=== PATIENT | female | born 1995 | race Two or more races ===

== ENCOUNTER 2024-10-27 09:56 | Emergency (ER) | payer OTHER ==
[~2024-10-27] VITALS: Ht 152.4 cm; Wt 70.3 kg
[2024-10-27 10:57] LABS: HEMATOCRIT 40.9 % (36.0-45.00); HEMOGLOBIN 13.9 g/dL (12.0-15.00); MEAN CELL VOLUME 90.4 fL (80.00-100.00); MEAN CORPUSCULAR HEMOGLOBIN 30.7 pg (27.00-32.0); PLATELET COUNT 297 K/uL (150-450); RED BLOOD COUNT 4.52 M/uL (4.00-6.00)
== END 2024-10-27 14:19 | disposition home or self-care (01) ==
LOC: ER 09:57
PROVIDERS: Emergency Medicine
DX: O20.8 Other hemorrhage in early pregnancy (principal); Z3A.01 Less than 8 weeks gestation of pregnancy

== ENCOUNTER 2025-02-15 22:24 | Inpatient (IN) | payer OTHER ==
[~2025-02-15] VITALS: Ht 154.9 cm; Wt 76.7 kg
[2025-02-15 22:00] VITALS: BP 126/79
[2025-02-15] MEDS ORDERED: PRENATAL TABLE1 EAC4 PO (22:28)
[2025-02-15] MEDS ORDERED: RINGERS SOLUTION,LACTATED 1,000 ML IV SCH (22:45)
[2025-02-15 23:11] VITALS: BP 104/68; O2SAT 96
[2025-02-16] VITALS (10 sets, daily range): BP systolic 98–123; BP diastolic 62–81; O2SAT 98–100
[2025-02-16 06:29] LABS: BASO % 0.1 % (0.1-1.2); EOS # 0.01 (0.04-0.54); EOS % 0.1 % (0.7-7.0); LYMPH # 1.04 (1.18-3.74); LYMPH % 7.2 % (19.3-53.1); MEAN PLATELET VOLUME 10.20 fl (9.4-12.4); MONO # 0.54 (0.24-0.82); MONO % 3.7 % (4.7-12.5); NEUT # 12.80 (1.56-6.13); NEUT % 88.6 % (34.0-71.1); RED CELL DISTRIBUTION WIDTH 13.1 % (11.6-14.4)
[2025-02-16 06:43] LABS: INR < 0.93
[2025-02-16] MEDS ORDERED: RINGERS SOLUTION,LACTATED 1,000 ML IV SCH (07:15)
[2025-02-16] MEDS ORDERED: OXYTOCIN 500 ML IV SCH (08:45)
[2025-02-16 08:54] LABS: ALT/SGPT 54.0 U/L (12-78); AST/SGOT 22.0 U/L (15-37); BILIRUBIN TOTAL 0.42 mg/dL (0.3-1.2); BUN CREA RATIO 12.0 (7.0-25.0); CREATININE SERUM 0.49 mg/dL (0.55-1.02); GFR 148.29; GLOBULINA 3.1 G/DL (2.4-3.5); GLUCOSE FASTING 112.0 mg/dL (65-100); OSMOLALITY SERUM 280.0 MOSM/KG (275-295)
[2025-02-16 09:37] LABS: URINE APPEARANCE Cloudy; URINE BILIRRUBIN Small (NEGATIVE); URINE BLOOD Large; URINE COLOR Red; URINE GLUCOSE Negative (NEGATIVE); URINE LEUKOCYTE Large; URINE NITRATE Positive; URINE UROBILINOGEN 0.2 E.U./dl
[2025-02-16 09:40] LABS: URINE BACTERIA 6199.1 uL (0.0-1933); URINE EPITHELIAL CELLS 16.1 uL (0.0-38.8); URINE RBC 129.9 uL (0.0-20.8); URINE WBC 222.9 uL (0.0-23.2)
[2025-02-16 10:59] LABS: URINE CAST 0.19 uL (0.0-1.40); URINE KETONE 40 (NEGATIVE); URINE PROTEIN 300 (NEGATIVE)
[2025-02-16] MEDS ORDERED: CEFAZOLIN SODIUM 2,000 MG in DEXTROSE 5 % IN WATER 100 ML IV SCH (14:00)
[2025-02-17 00:23] LABS: BASO % 0.2 % (0.1-1.2); EOS # 0.04 (0.04-0.54); EOS % 0.3 % (0.7-7.0); LYMPH # 2.13 (1.18-3.74); LYMPH % 14.0 % (19.3-53.1); MEAN PLATELET VOLUME 10.50 fl (9.4-12.4); MONO # 0.87 (0.24-0.82); MONO % 5.7 % (4.7-12.5); NEUT # 12.07 (1.56-6.13); NEUT % 79.1 % (34.0-71.1); RED CELL DISTRIBUTION WIDTH 13.2 % (11.6-14.4)
[2025-02-17 02:35] LABS: RH POSITIVE
[2025-02-17 02:59] VITALS: BP 92/58; O2SAT 95
[2025-02-17 08:57] VITALS: BP 108/71; O2SAT 99
[2025-02-17 18:00] VITALS: BP 128/83; O2SAT 100
[2025-02-18 01:03] VITALS: BP 100/62; O2SAT 98
[2025-02-18 08:37] VITALS: BP 124/76; O2SAT 100
[2025-02-18 13:52] LABS: BASO % 0.5 % (0.1-1.2); EOS # 0.32 (0.04-0.54); EOS % 2.8 % (0.7-7.0); LYMPH # 1.91 (1.18-3.74); LYMPH % 16.7 % (19.3-53.1); MEAN PLATELET VOLUME 10.20 fl (9.4-12.4); MONO # 0.86 (0.24-0.82); MONO % 7.5 % (4.7-12.5); NEUT # 7.86 (1.56-6.13); NEUT % 68.6 % (34.0-71.1); RED CELL DISTRIBUTION WIDTH 14.0 % (11.6-14.4)
[2025-02-18] MEDS ORDERED: VITABEX IRON C1 EACH PO (15:14)
== END 2025-02-18 15:30 | disposition home or self-care (01) | DRG 805 ==
LOC: OBS/DEL 22:24 → MEDJ 02-16 07:12 → LDR 02-16 07:12 → MEDJ 02-16 14:41
PROVIDERS: ADMIT Specialist; ATTEND Specialist
PROC: BY4CZZZ Ultrasonography of Second Trimester, Single Fetus (ICD-10-PCS; 2025-02-15)
PROC: 10E0XZZ Delivery of Products of Conception, External Approach (ICD-10-PCS; principal; 2025-02-16)
PROC: 3E033VJ Introduction of Other Hormone into Peripheral Vein, Percutaneous Approach (ICD-10-PCS; 2025-02-16)
PROC: 4A1HXCZ Monitoring of Products of Conception, Cardiac Rate, External Approach (ICD-10-PCS; 2025-02-16)
PROC: 30233N1 Transfusion of Nonautologous Red Blood Cells into Peripheral Vein, Percutaneous Approach (ICD-10-PCS; 2025-02-18)
DX: O36.4XX0 Maternal care for intrauterine death, not applicable or unspecified (principal); O41.1220 Chorioamnionitis, second trimester, not applicable or unspecified; Z37.1 Single stillbirth; O60.12X0 Preterm labor second trimester with preterm delivery second trimester, not applicable or unspecified; O67.8 Other intrapartum hemorrhage; O41.1420 Placentitis, second trimester, not applicable or unspecified; Z3A.21 21 weeks gestation of pregnancy